=== PATIENT | male | born 1995 | race African-American/Black ===

== ENCOUNTER 2024-10-18 14:04 | Inpatient (IN) | payer OTHER ==
[~2024-10-18] VITALS: Ht 165.1 cm; Wt 59.9 kg
[2024-10-18] MEDS: SODIUM CHLORIDE 0.9% 1,000 ML IV ONE ×2 (15:50→20:49)
[2024-10-18] MEDS: MORPHINE SULFATE 4 MG/ML INJ (FOR IV/IM USE) IV STA (15:50)
[2024-10-18] MEDS: ONDANSETRON HCL 4MG/2ML INJ IV STA (15:51)
[2024-10-18 15:52] LABS: CARBON DIOXIDE 27 mEq/L (21-32); CHLORIDE 105 mEq/L (98-107); POTASSIUM 4.8 mEq/L (3.5-5.1); SODIUM 141 mEq/L (136-145)
[2024-10-18 15:53] LABS: BASOPHILS % 0.2 % (0.0-2.0); CALCIUM 9.5 mg/dL (8.7-10.4); EOSINOPHILS % 0.3 % (0.0-5.0); HEMATOCRIT. 47.8 % (42.0-52.0); HEMOGLOBIN. 16.3 g/dL (14.0-18.0); LYMPHOCYTES % 11.8 % (20.0-50.0); MEAN CORPUSCULAR HEMOGLOBIN 38.3 pg (28.0-32.0); MEAN CORPUSCULAR HGB CONC 34.1 g/dL (31.0-37.0); MEAN CORPUSCULAR VOLUME 112.1 fL (80.0-94.0); MEAN PLATELET VOLUME 8.5 fl (7.4-10.4); MONOCYTES % 7.2 % (2.0-8.0); NEUTROPHILS % 80.5 % (40.0-76.0); PLATELET 294 x1000/uL (130-400); RED BLOOD CELL COUNT 4.26 mill/uL (4.7-6.1); RED CELL DISTRIBUTION WIDTH 14.2 % (11.6-14.6); WHITE BLOOD COUNT 7.4 x1000/uL (4.5-11.0)
[2024-10-18 15:55] LABS: ADD RBC MORPHOLOGY YES; DIFFERENTIAL COMMENT 1
[2024-10-18 15:57] LABS: CREATININE 1.1 mg/dL (0.6-1.3); GLUCOSE 92 mg/dL (70-105); UREA NITROGEN BLOOD 7 mg/dL (9-23)
[2024-10-18 16:23] LABS: PLATELET ESTIMATE NORMAL
[2024-10-18] MEDS: ONDANSETRON HCL 4MG/2ML INJ IV ONE (18:12)
[2024-10-18] MEDS ORDERED: DICYCLOMINE HCL 10MG CAPSULE PO NR (18:15)
[2024-10-18] MEDS ORDERED: DICYCLOMINE HCL 10MG/ML 2ML VIAL IM ONE (18:15)
[2024-10-18] MEDS: DICYCLOMINE HCL 10MG/ML 2ML VIAL IM NR (18:29)
[2024-10-18] MEDS: METOCLOPRAMIDE HCL 10MG/2ML VIAL IV ONE (18:40)
[2024-10-18] MEDS: HALOPERIDOL LACTATE 5MG/ML VIAL IM ONE (20:01)
[2024-10-18] MEDS: LORAZEPAM 2MG/ML INJ IV ONE (20:49)
[2024-10-19] MEDS: IOHEXOL-300 100 ML BOTTLE ONE (00:02)
[2024-10-19 03:47] VITALS: BP 111/52; PULSE 61; RESP 20; TEMP 35.8064
[2024-10-19 04:00] VITALS: BP 90/63; PULSE 96; RESP 20; TEMP 36.50292; O2SAT 100
[2024-10-19] MEDS ORDERED: LORAZEPAM 2MG/ML INJ IV PRN (06:00)
[2024-10-19] MEDS ORDERED: NALOXONE HCL 0.4MG/ML VIAL IV PRN (06:45)
[2024-10-19] MEDS: PANTOPRAZOLE 40MG DR TABLET PO SCH (07:17)
[2024-10-19] MEDS: ONDANSETRON HCL 4MG/2ML INJ IV PRN (07:18)
[2024-10-19] MEDS: OXYCODONE HCL/ACETAMINOPHEN 5/325MG TABLET PO PRN (07:18)
[2024-10-19 08:00] VITALS: BP 112/59; PULSE 62; RESP 19; TEMP 36.72516; O2SAT 100
[2024-10-19] MEDS: LEVETIRACETAM 500MG TABLET PO SCH (08:28)
[2024-10-19] MEDS ORDERED: CLONIDINE 0.1MG TABLET PO PRN (11:00)
[2024-10-19] MEDS ORDERED: DOCUSATE SODIUM 100MG CAPSULE PO PRN (11:00)
[2024-10-19] MEDS ORDERED: IPRATROPIUM/ALBUTEROL 0.5-3(2.5)MG/3ML NEB HHN PRN (11:00)
[2024-10-19 11:56] LABS: BASOPHILS % 0.2 % (0.0-2.0); HEMATOCRIT. 42.1 % (42.0-52.0); HEMOGLOBIN. 14.4 g/dL (14.0-18.0); LYMPHOCYTES % 20.7 % (20.0-50.0); MEAN CORPUSCULAR HEMOGLOBIN 38.2 pg (28.0-32.0); MEAN CORPUSCULAR HGB CONC 34.2 g/dL (31.0-37.0); MEAN CORPUSCULAR VOLUME 111.7 fL (80.0-94.0); MONOCYTES % 9.9 % (2.0-8.0); NEUTROPHILS % 69.2 % (40.0-76.0); PLATELET 271 x1000/uL (130-400); RED BLOOD CELL COUNT 3.77 mill/uL (4.7-6.1); RED CELL DISTRIBUTION WIDTH 14.1 % (11.6-14.6); WHITE BLOOD COUNT 7.4 x1000/uL (4.5-11.0)
[2024-10-19 12:00] VITALS: BP 103/68; PULSE 86; RESP 19; TEMP 36.72516; O2SAT 99
[2024-10-19 12:08] LABS: DIFFERENTIAL COMMENT 1
[2024-10-19 12:10] LABS: CARBON DIOXIDE 29 mEq/L (21-32); CHLORIDE 100 mEq/L (98-107); POTASSIUM 4.1 mEq/L (3.5-5.1); SODIUM 137 mEq/L (136-145)
[2024-10-19 12:11] LABS: CALCIUM 9.2 mg/dL (8.7-10.4)
[2024-10-19 12:16] LABS: GLUCOSE 99 mg/dL (70-105); UREA NITROGEN BLOOD 8 mg/dL (9-23)
[2024-10-19 12:17] LABS: ALBUMIN 4.2 g/dL (3.2-4.8)
[2024-10-19 12:18] LABS: ALANINE AMINOTRANSFERASE 36 IU/L (10-49); ASPARTATE AMINOTRANSFERASE 65 IU/L (<34); BILIRUBIN TOTAL 0.8 mg/dL (0.1-1.0); PROTEIN TOTAL 6.6 g/dL (6.0-8.3)
[2024-10-19 14:25] LABS: CLARITY URINE CLEAR (CLEAR); COLOR URINE YELLOW (YELLOW); GLUCOSE URINE NEGATIVE (NEGATIVE); KETONES URINE 2+ (NEGATIVE); LEUKOCYTE ESTERASE URINE NEGATIVE (NEGATIVE); NITRITE URINE NEGATIVE (NEGATIVE); OCCULT BLOOD URINE NEGATIVE (NEGATIVE); PH URINE 6.5 (4.5-8.0); PROTEIN URINE TRACE (NEGATIVE); SPECIFIC GRAVITY URINE 1.053 (1.005-1.030)
[2024-10-19 14:39] LABS: *AMPHETAMINES SCREEN URINE PRESUMPTIVE POSITIVE (NEGATIVE); *BARBITURATES SCREEN URINE NEGATIVE (NEGATIVE); *BENZODIAZEPINES SCREEN URINE PRESUMPTIVE POSITIVE (NEGATIVE); *COCAINE SCREEN URINE NEGATIVE (NEGATIVE); CANNABINOID URINE SCREEN PRESUMPTIVE POSITIVE (NEGATIVE); ECSTASY MDMA SCREEN URINE NEGATIVE (NEGATIVE); METHADONE URINE SCREEN NEGATIVE (NEGATIVE); OPIATES URINE SCREEN PRESUMPTIVE POSITIVE (NEGATIVE); PHENCYCLIDINE URINE SCREEN NEGATIVE (NEGATIVE)
[2024-10-19 14:54] LABS: RBC URINE NONE SEEN /hpf (0-2); SQUAMOUS EPITHELIAL CELL URINE FEW /lpf (RARE/1+); WBC URINE 15-25 /hpf (0-2)
[2024-10-19 14:55] LABS: BACTERIA URINE 1+; YEAST URINE NONE SEEN
[2024-10-19 16:00] VITALS: BP 110/65; PULSE 92; RESP 19; TEMP 36.72516; O2SAT 100
[2024-10-19 20:00] VITALS: BP 115/67; PULSE 69; RESP 18; TEMP 37.61412; O2SAT 97
[2024-10-19] MEDS: DOCUSATE SODIUM 100MG CAPSULE PO SCH (20:37)
[2024-10-19] MEDS: SENNOSIDES 8.6MG TABLET PO SCH (20:37)
[2024-10-20] VITALS: BP 119/79; PULSE 76; RESP 18; TEMP 35.94732; O2SAT 98
[2024-10-20] MEDS: SODIUM CHLORIDE 0.9% 1,000 ML IV SCH (00:19)
[2024-10-20 04:00] VITALS: BP 120/68; PULSE 77; RESP 18; TEMP 37.11408; O2SAT 97
[2024-10-20 08:00] VITALS: BP 118/79; PULSE 60; RESP 18; TEMP 36.61404; O2SAT 100
[2024-10-20 10:12] LABS: BASOPHILS % 0.5 % (0.0-2.0); EOSINOPHILS % 0.5 % (0.0-5.0); HEMATOCRIT. 43.6 % (42.0-52.0); MEAN CORPUSCULAR HEMOGLOBIN 38.6 pg (28.0-32.0); MEAN CORPUSCULAR HGB CONC 34.3 g/dL (31.0-37.0); MEAN CORPUSCULAR VOLUME 112.3 fL (80.0-94.0); MEAN PLATELET VOLUME 9.2 fl (7.4-10.4); MONOCYTES % 9.8 % (2.0-8.0); NEUTROPHILS % 63.2 % (40.0-76.0); PLATELET 244 x1000/uL (130-400); RED BLOOD CELL COUNT 3.88 mill/uL (4.7-6.1); WHITE BLOOD COUNT 4.2 x1000/uL (4.5-11.0)
[2024-10-20 10:35] LABS: DIFFERENTIAL COMMENT 1
[2024-10-20 10:37] LABS: CHLORIDE 102 mEq/L (98-107); POTASSIUM 3.8 mEq/L (3.5-5.1); SODIUM 139 mEq/L (136-145)
[2024-10-20 10:38] LABS: CARBON DIOXIDE 31 mEq/L (21-32)
[2024-10-20 10:43] LABS: CREATININE 1.1 mg/dL (0.6-1.3); GLUCOSE 98 mg/dL (70-105); UREA NITROGEN BLOOD 9 mg/dL (9-23)
[2024-10-20 10:45] LABS: ALANINE AMINOTRANSFERASE 31 IU/L (10-49); ALBUMIN 4.1 g/dL (3.2-4.8); ASPARTATE AMINOTRANSFERASE 55 IU/L (<34); BILIRUBIN TOTAL 0.9 mg/dL (0.1-1.0); PROTEIN TOTAL 6.5 g/dL (6.0-8.3)
[2024-10-20 11:57] LABS: HEPATITIS B SURFACE ANTIGEN NEGATIVE (Negative)
[2024-10-20 12:00] VITALS: BP 136/85; PULSE 69; RESP 18; TEMP 36.05844; O2SAT 95
[2024-10-20 12:18] LABS: HEPATITIS A AB IGM NEGATIVE (Negative)
[2024-10-20 12:19] LABS: HEPATITIS B CORE AB IGM NEGATIVE (Negative); HEPATITIS C AB NON REACTIVE (Neg) (Negative)
[2024-10-20 16:00] VITALS: BP 120/85; PULSE 65; RESP 17; TEMP 36.114; O2SAT 98
[2024-10-20 20:00] VITALS: BP 101/68; PULSE 78; RESP 18; TEMP 36.83628; O2SAT 98
[2024-10-20] MEDS: ACETAMINOPHEN 325MG TABLET PO PRN (20:25)
[2024-10-21 08:00] VITALS: BP 129/84; PULSE 55; RESP 19; TEMP 36.55848; O2SAT 91
[2024-10-21] MEDS ORDERED: KEPP500 MT (09:10)
[2024-10-21 12:33] VITALS: BP 129/84; PULSE 78; TEMP 97.8; O2SAT 99
[2024-10-23 15:06] LABS: ATYPICAL pANCA <1:20 titer (Neg:<1:20)
[2024-10-26 13:06] LABS: SACCHAROMYCES CEREVISIAE IGG 29.1 Units (0.0-24.9); SACCHAROMYCES CEREVISIAE IGM 33.4 Units (0.0-24.9)
== END 2024-10-21 15:09 | disposition home or self-care (01) | DRG 249 ==
LOC: ER 14:04 → EDBEDREQ 19:07 → 6EST 22:07 → EDBEDREQ 22:24 → EDBEDREQTM 22:24
PROVIDERS: ADMIT Internal Medicine; ATTEND Internal Medicine
DX: K52.9 Noninfective gastroenteritis and colitis, unspecified (principal); K76.0 Fatty (change of) liver, not elsewhere classified; F12.90 Cannabis use, unspecified, uncomplicated; G40.909 Epilepsy, unspecified, not intractable, without status epilepticus; K59.00 Constipation, unspecified
CPT/HCPCS: 36415; 74177; 80048; 80053; 80305; 81003; 83735; 85025; 86256; 86671; 86705; 86709; 87340; 99285; A4606; J0500; J1630; J2060; J2270; J2405; J2765; J7030; Q9967